=== PATIENT | female | born 2000 | race Caucasian/White ===

== ENCOUNTER 2019-08-18 18:35 | Emergency (ER) | payer SELFPAY ==
[2019-08-18 19:45] LABS: URINE BILIRUBIN - DIPSTICK NEGATIVE (NEGATIVE); URINE BLOOD DIPSTICK NEGATIVE (NEGATIVE); URINE COLOR YELLOW; URINE GLUCOSE - DIPSTICK NEGATIVE (NEGATIVE); URINE KETONE NEGATIVE (NEGATIVE); URINE LEUK ESTERASE TRACE (NEGATIVE); URINE NITRITE - DIPSTICK NEGATIVE (Negative); URINE PROTEIN - DIPSTICK 30 mg/dL (NEG-TRACE); URINE SPECIFIC GRAVITY >=1.030; URINE UROBILINOGEN - DIPSTICK 0.2 E.U./dL (0.2)
[2019-08-18 19:48] LABS: HEMATOCRIT 34.6 % (37.0-47.0); IMMATURE GRANULOCYTES 0.4 % (0.0-5.0); MEAN CELL VOLUME 82.4 fL CALC (80.0-100.0); MEAN CORPUSCULAR HGB 26.2 pG CALC (26.0-32.0); MEAN CORPUSCULAR HGB CONC 31.8 g/dL CAL (32.0-36.0); NEUT# 8.29 thou/uL (2.00-7.15); RED BLOOD COUNT 4.2 mill/uL (4.20-5.60); RED CELL DISTRI WIDTH 14.5 % (11.5-15.5)
[2019-08-18 20:00] LABS: ALBUMIN 4.2 g/dL (3.2-5.0); ALKALINE PHOSPHATASE 87 u/l (38-126); ANION GAP 12 (6-22 (CALC)); BILIRUBIN, TOTAL 0.4 mg/dL (0.0-1.4); BUN 13 mg/dL (7-17); BUN/CREATININE RATIO 18 (12-20 (CALC)); CARBON DIOXIDE 27 mmol/l (22-30); CHLORIDE 103 mmol/l (95-108); CREATININE 0.7 mg/dL (0.5-1.0); GFR > 60 ML/MIN (>=60 (CALC)); GFR FOR AFR.AMER. > 60 ML/MIN (>=60 (CALC)); POTASSIUM 3.9 mmol/l (3.5-5.1); SGOT/AST 17 u/l (14-36); SODIUM 138 mmol/l (137-146); TOTAL PROTEIN 7.3 g/dL (6.3-8.2)
[2019-08-18 20:05] LABS: URINE SQUAMOUS EPITHELIAL CELL FEW EPI/hpf (0-FEW)
[2019-08-18] MEDS ORDERED: BACTRIM DS1 TAB PO (22:56)
[2019-08-18] MEDS ORDERED: MOTRIN400 MG PO (22:56)
[2019-08-18 22:57] VITALS: BP 115/67
== END 2019-08-18 23:11 | disposition home or self-care (01) | DRG 690 ==
LOC: ED 18:35
PROVIDERS: Emergency Medicine
DX: N39.0 Urinary tract infection, site not specified (principal); Z87.440 Personal history of urinary (tract) infections
CPT/HCPCS: Q9967

== ENCOUNTER 2020-06-30 07:11 | Emergency (ER) | payer OTHER ==
[~2020-06-30] VITALS: Ht 160 cm; Wt 88.0 kg
[~2020-06-30 07:11] MED LIST: BACTRIM DS1 TAB PO; MOTRIN400 MG PO
[2020-06-30 07:45] LABS: URINE BILIRUBIN - DIPSTICK NEGATIVE (NEGATIVE); URINE BLOOD DIPSTICK NEGATIVE (NEGATIVE); URINE COLOR YELLOW; URINE GLUCOSE - DIPSTICK NEGATIVE (NEGATIVE); URINE KETONE NEGATIVE (NEGATIVE); URINE LEUK ESTERASE NEGATIVE (NEGATIVE); URINE NITRITE - DIPSTICK NEGATIVE (Negative); URINE PH 5.5 (4.5-8.0); URINE PROTEIN - DIPSTICK NEGATIVE (NEG-TRACE); URINE SPECIFIC GRAVITY >=1.030; URINE UROBILINOGEN - DIPSTICK 0.2 E.U./dL (0.2)
[2020-06-30 07:46] LABS: HEMATOCRIT 35.7 % (37.0-47.0); HEMOGLOBIN 11.5 g/dl (12.0-16.0); IMMATURE GRANULOCYTES 0.3 % (0.0-5.0); MEAN CORPUSCULAR HGB 28.4 pG CALC (26.0-32.0); MEAN CORPUSCULAR HGB CONC 32.2 g/dL CAL (32.0-36.0); NEUT# 4.55 thou/uL (2.00-7.15); RED BLOOD COUNT 4.05 mill/uL (4.20-5.60)
[2020-06-30 07:51] LABS: MEAN CELL VOLUME 88.1 fL CALC (80.0-100.0)
[2020-06-30 08:03] LABS: ALBUMIN 3.8 g/dL (3.2-5.0); ALKALINE PHOSPHATASE 56 u/l (38-126); AMYLASE 63 u/l (30-110); ANION GAP 10 (6-22 (CALC)); BILIRUBIN, TOTAL 0.5 mg/dL (0.0-1.4); BUN 8 mg/dL (7-17); BUN/CREATININE RATIO 14 (12-20 (CALC)); CARBON DIOXIDE 24 mmol/l (22-30); CHLORIDE 108 mmol/l (95-108); CREATININE 0.6 mg/dL (0.5-1.0); GFR > 60 ML/MIN (>=60 (CALC)); GFR FOR AFR.AMER. > 60 ML/MIN (>=60 (CALC)); LIPASE 69 u/l (23-300); POTASSIUM 3.8 mmol/l (3.5-5.1); SGOT/AST 23 u/l (14-36); SODIUM 138 mmol/l (137-146); TOTAL PROTEIN 6.8 g/dL (6.3-8.2)
[2020-06-30] MEDS ORDERED: IBUPROFEN600 MG PO (09:09)
[2020-06-30] MEDS ORDERED: PROTONIX40 M2 PO (09:09)
[2020-06-30 09:32] VITALS: BP 96/52
== END 2020-06-30 09:47 | disposition home or self-care (01) ==
LOC: ED 07:11
DX: R10.12 Left upper quadrant pain (principal); F17.210 Nicotine dependence, cigarettes, uncomplicated
CPT/HCPCS: S0164

== ENCOUNTER 2020-09-11 12:15 | Emergency (ER) | payer OTHER ==
[~2020-09-11] VITALS: Ht 160 cm; Wt 86.4 kg
[~2020-09-11 12:15] MED LIST changes: +IBUPROFEN600 MG PO; +PROTONIX40 M2 PO
[2020-09-11] MEDS ORDERED: ULTRAM50 M1 PO (12:33)
[2020-09-11] MEDS ORDERED: AMOXICILLIN500 MG PO (12:33)
[2020-09-11 12:36] VITALS: BP 112/68
== END 2020-09-11 12:41 | disposition home or self-care (01) ==
LOC: ED 12:15
DX: K02.9 Dental caries, unspecified (principal); F17.210 Nicotine dependence, cigarettes, uncomplicated

== ENCOUNTER 2021-01-16 02:10 | Emergency (ER) | payer OTHER ==
[~2021-01-16] VITALS: Ht 160 cm; Wt 88.0 kg
[~2021-01-16 02:10] MED LIST changes: +AMOXICILLIN500 MG PO; +ULTRAM50 M1 PO
[2021-01-16] MEDS ORDERED: AMOXICILLIN500 MG PO (02:25)
[2021-01-16 02:48] VITALS: BP 132/77
== END 2021-01-16 03:05 | disposition home or self-care (01) ==
LOC: ED 02:10
DX: O99.612 Diseases of the digestive system complicating pregnancy, second trimester (principal); K04.7 Periapical abscess without sinus; S02.5XXA Fracture of tooth (traumatic), initial encounter for closed fracture; O99.332 Smoking (tobacco) complicating pregnancy, second trimester; F17.200 Nicotine dependence, unspecified, uncomplicated; X58.XXXA Exposure to other specified factors, initial encounter; Z3A.00 Weeks of gestation of pregnancy not specified

== ENCOUNTER 2021-01-29 19:13 | Emergency (ER) | payer OTHER ==
[~2021-01-29] VITALS: Ht 160 cm; Wt 88.0 kg
[2021-01-29] MEDS ORDERED: PRENATA3 PO (19:33)
[2021-01-29] MEDS ORDERED: CLEOCIN300 MG PO (19:46)
[2021-01-29] MEDS ORDERED: [UNRECOGNIZED DRUG - OTHER] PO (19:46)
[2021-01-29 19:50] VITALS: BP 115/63
== END 2021-01-29 19:50 | disposition home or self-care (01) ==
LOC: ED 19:13
DX: O99.612 Diseases of the digestive system complicating pregnancy, second trimester (principal); K04.7 Periapical abscess without sinus; O99.332 Smoking (tobacco) complicating pregnancy, second trimester; F17.200 Nicotine dependence, unspecified, uncomplicated; Z3A.00 Weeks of gestation of pregnancy not specified

== ENCOUNTER 2022-02-02 19:14 | Emergency (ER) | payer OTHER ==
[~2022-02-02] VITALS: Ht 160 cm; Wt 88.0 kg
[~2022-02-02 19:14] MED LIST changes: +CLEOCIN300 MG PO; +PRENATA3 PO; +[UNRECOGNIZED DRUG - OTHER] PO
[2022-02-02] MEDS ORDERED: TRIAMCINOLON0.13 EX (23:30)
[2022-02-02] MEDS ORDERED: DRYSOL20 % EX (23:30)
[2022-02-02 23:53] VITALS: BP 118/73
== END 2022-02-02 23:53 | disposition home or self-care (01) ==
LOC: ED 19:14
DX: L30.1 Dyshidrosis [pompholyx] (principal); F17.200 Nicotine dependence, unspecified, uncomplicated

== ENCOUNTER 2022-03-07 13:10 | Emergency (ER) | payer OTHER ==
[~2022-03-07] VITALS: Ht 160 cm; Wt 90.0 kg
[2022-03-07] VITALS (7 sets, daily range): BP systolic 83–109; BP diastolic 56–68
[~2022-03-07 13:10] MED LIST changes: +DRYSOL20 % EX; +TRIAMCINOLON0.13 EX
[2022-03-07] MEDS ORDERED: PREDNISONE20 MG PO (13:42)
[2022-03-07] MEDS ORDERED: DOXY-CAPS100 MG PO (13:42)
== END 2022-03-07 14:39 | disposition home or self-care (01) ==
LOC: ED 13:10
DX: L98.9 Disorder of the skin and subcutaneous tissue, unspecified (principal); F17.210 Nicotine dependence, cigarettes, uncomplicated

== ENCOUNTER 2022-04-28 22:49 | Emergency (ER) | payer OTHER ==
[~2022-04-28] VITALS: Ht 160 cm; Wt 85.0 kg
[~2022-04-28 22:49] MED LIST changes: +DOXY-CAPS100 MG PO; +PREDNISONE20 MG PO
[2022-04-28] MEDS ORDERED: TRAMADOL HCL50 MG PO (23:11)
[2022-04-28] MEDS ORDERED: CLINDAMYCIN300 M1 PO (23:11)
[2022-04-28 23:13] VITALS: BP 137/81
== END 2022-04-28 23:26 | disposition home or self-care (01) ==
LOC: ED 22:49
DX: O99.611 Diseases of the digestive system complicating pregnancy, first trimester (principal); K04.7 Periapical abscess without sinus; K02.9 Dental caries, unspecified; Z3A.09 9 weeks gestation of pregnancy